=== PATIENT | female | born 1945 | race Caucasian/White ===

== ENCOUNTER 2024-02-14 19:29 | Emergency (ER) | payer MEDICARE, SELFPAY ==
[2024-02-14] VITALS (7 sets, daily range): BP systolic 100–162; BP diastolic 46–97; PULSE 73–92; RESP 15–18; TEMP 36.6; O2SAT 92–96; BMI 27.8
--- NOTE | 2024-02-14 19:53 | ECG_ITS ---
[facility] Date: 2024-02-14 Pat Name: Irais Rebolledo Department: Room: Gender: Female [employer] Dispatcher: : [id number] Requested By: Myrna Gilmore Order Number: [id number] Ramona MD: Bishnu Luna M.D. Measurements Intervals [place] Rate: 84 P: -11 TN: 163 QRS: 94 QRSD: 94 T: 52 QT: 367 QTc: 434 Interpretive Statements SINUS RHYTHM BORDERLINE RIGHT AXIS DEVIATION [QRS AXIS > 90] LOW QRS VOLTAGE IN PRECORDIAL LEADS [QRS DEFLECTION < 1.0 mV IN CHEST LEADS] SEPTAL MYOCARDIAL INFARCTION , OF INDETERMINATE AGE [40+ ms Q WAVE IN V1/V2] No previous ECG available for comparison Electronically Signed On 02-15-2024 21:33:40 AGING DEPARTMENT SUPERVISOR by Bishnu Luna M.D. [email or web address]
--- NOTE | 2024-02-14 20:34 | USR_ITS ---
PROCEDURE INFORMATION: Exam: US Duplex Left Lower Extremity Veins, Limited Exam date and time: 02/14/2024 9:08 PM Age: 79 years old Clinical indication: Pain; Leg, lower; Left; Additional info: L leg pain TECHNIQUE: Imaging protocol: Real-time duplex ultrasound of the left extremity with 2-D ring scale, color Doppler flow and spectral waveform analysis including responses to compression and other maneuvers (when performed) with image documentation. Limited exam focused on the left lower extremity veins. COMPARISON: No relevant prior studies available. FINDINGS: Left deep veins: Unremarkable. The common femoral, femoral, proximal profunda femoral and popliteal veins are patent without thrombus. Normal Doppler waveforms. Normal compressibility and/or augmentation response. Superficial veins: Greater saphenous vein at the saphenofemoral junction is patent without thrombus. Soft tissues: Unremarkable. US/CV venous duplex [facility] [id number] IMPRESSION: No evidence of deep vein thrombosis.
--- NOTE | 2024-02-14 20:34 | CTR_ITS ---
PROCEDURE INFORMATION: Exam: CT Head Without Contrast Exam date and time: 02/14/2024 9:21 PM Age: 79 years old Clinical indication: Syncope and collapse TECHNIQUE: Imaging protocol: Computed tomography of the head without contrast. Radiation optimization: All CT scans at this facility use at least one of these dose optimization techniques: automated exposure control; mA and/or kV adjustment per patient size (includes targeted exams where dose is matched to clinical indication); or iterative reconstruction. COMPARISON: No relevant prior studies available. RADIATION DOSE METRICS: Total DLP (mGy-cm): 1012.64 FINDINGS: Brain: Normal. No hemorrhage. Unremarkable white matter. No mass effect. Cerebral ventricles: No ventriculomegaly. Paranasal sinuses: Visualized sinuses are unremarkable. No fluid levels. Mastoid air cells: Visualized mastoid air cells are well aerated. Bones: Left mandibular condyle osteoarthritic changes. Soft tissues: Unremarkable. CT/CT head wo con* [id number] IMPRESSION: No acute intracranial process. Consider brain MRI if there is continued clinical concern for an underlying acute ischemic change.
--- NOTE | 2024-02-14 20:34 | CTR_ITS ---
PROCEDURE INFORMATION: Exam: CT Abdomen And Pelvis With Contrast Exam date and time: 02/14/2024 9:24 PM Age: 79 years old Clinical indication: Vomiting TECHNIQUE: Imaging protocol: Computed tomography of the abdomen and pelvis with contrast. Radiation optimization: All CT scans at this facility use at least one of these dose optimization techniques: automated exposure control; mA and/or kV adjustment per patient size (includes targeted exams where dose is matched to clinical indication); or iterative reconstruction. Contrast material: OMNI 350; Contrast volume: 100 ml; Contrast route: INTRAVENOUS (IV); COMPARISON: [place] [id number] 02/14/2024 9:08 PM RADIATION DOSE METRICS: Total DLP (mGy-cm): 922.73 FINDINGS: Lungs: Emphysematous changes. Bibasilar atelectasis. Diaphragm: Small hiatal hernia. Liver: Hepatic steatosis. Gallbladder and biliary ducts: Normal. No calcified stones. No ductal dilation. Pancreas: Normal. No ductal dilation. Spleen: Normal. No splenomegaly. Adrenal glands: Normal. No mass. Kidneys and ureters: Bilateral renal cysts, negative for follow up advised. Right kidney nonobstructing calyceal stones. Stomach and bowel: Prominent fluid in the stomach, small bowel and colon, please correlate for a gastroenteritis colitis. Diverticulosis without diverticulitis. Appendix: No evidence of appendicitis. Intraperitoneal space: Unremarkable. No free air. No significant fluid collection. 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 Scattered aortic atherosclerotic calcifications. Lymph nodes: Unremarkable. No enlarged lymph nodes. Urinary bladder: Unremarkable as visualized. Reproductive: Unremarkable as visualized. Bones/joints: Unremarkable. No acute fracture. Soft tissues: Unremarkable. CT/CT abdomen pelvis w con* [id number] IMPRESSION: 1. Prominent fluid in the stomach, small bowel and colon, please correlate for a gastroenteritis colitis. 2. 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 3. Bilateral renal cysts, negative for follow up advised. 4. Right kidney nonobstructing calyceal stones. 5. Scattered aortic atherosclerotic calcifications. 6. Emphysematous changes. 7. Bibasilar atelectasis. 8. Hepatic steatosis. 9. Small hiatal hernia. 10. Diverticulosis without diverticulitis.
[2024-02-14] MEDS: ondansetron 2 mg/ML SDV 2 mL 4 MG IVP (20:39)
--- NOTE | 2024-02-14 20:40 | ED_ITS ---
HPI - Abdominal Pain 2 General: Chief Complaint: Abdominal Pain Stated Complaint: Vomitting blood, jaw hurts Time Seen by Provider: 02/14/24 20:29 Source: patient Mode of arrival: ambulatory Limitations: no limitations History of Present Illness: 79-year-old female states that she had e aten at Tuesdays this evening states started felt nauseous having abdominal cramping and an hour ago started having nausea and vomiting states that one of her vomitus had blood in it. 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 She had abdominal cramping denies any severe abdominal pain. States she also complains of some left leg pains and is concerned also for DVT as she has had long trips from [place] recently. Denies any fever Associated Symptoms: Reports nausea and vomiting; Denies chills, diarrhea, dysuria and fever(s) Related Data Previous Rx's Medication Instructions Recorded ondansetron 4 mg disintegrating 4 mg PO Q6H PRN nausea and 02/14/24 tablet vomiting #14 tabs Allergies Allergy/AdvReac Type Severity Reaction Status Date / Time enalaprilat [From Vasotec] Allergy Unknown Verified 02/14/24 19:51 Iodinated Contrast Media Allergy Unknown Verified 02/14/24 19:51 Penicillins Allergy Unknown Verified 02/14/24 19:51 Review of Systems 2 Const: Denies: fever(s), chills, body aches or change in appetite ENMT: Denies: throat pain or dental pain Card: Denies: chest pain Resp: Denies: dyspnea GI: Reports: abdominal pain, nausea and vomiting; Denies: diarrhea : Denies: dysuria Musc: Denies: neck pain or back pain Skin/Breast: Denies: rash Neuro: Denies: headache(s) Physical Exam 2 Const: COMMON NORMALS: no acute distress, patient oriented x3 and healthy appearing HENMT: COMMON NORMALS: normocephalic and atraumatic HEAD & SCALP: n ormocephalic and atraumatic Eye: COMMON NORMALS: conjunctivae normal CONJUNCTIVA: Yes conjunctivae normal Neck/C-Spine: COMMON NORMALS: full ROM and supple Chest: COMMONS NORMALS: normal inspection of the chest Resp: COMMON NORMALS: normal respiratory effort, No retractions, No use of accessory muscles and clear to auscultation bilaterally AUSCULTATION: clear to auscultation bilaterally Cardio: COMMON NORMALS: regular rate, regular rhythm and No murmurs present (Cardio) RATE: regular rate RHYTHM: regular rhythm GI: COMMON NORMALS: Normal to inspection, nondistended, normoactive bowel sounds present, Soft to palpation, non-tender and no masses PALPATION: Yes Soft to palpation Extremity: COMMON NORMALS: normal to inspection and full ROM Neuro: COMMON NORMALS: patient oriented x3, moves all extremities and no focal motor deficits Psych: COMMON NORMALS: mental status grossly normal, Normal thought process present and cooperative THOUGHT PROCESS: Normal thought process present Skin: COMMON NORMALS: no rashes or lesions noted and no wounds GENERAL SKIN EXAM: no rashes or lesions noted Course 2 Vital Signs: Vital signs: Vital Signs Temperature 97.8 F 02/14/24 19:42 Pulse Rate 92 02/14/24 22:30 Respiratory Rate 15 02/14/24 22:30 Blood Pressure 157/67 02/14/24 22:30 Pulse Oximetry 93 02/14/24 22:30 Oxygen Delivery Me thod Room Air 02/14/24 22:30 MDM - Abdominal Pain Medical Decision Making Patient presents after vomiting is likely gastritis or food poisoning she feels much improved after Zofran she is able to tolerate p.o. CT scan showed no acute findings she also did have what sounds like a vagal episode in the waiting room while vomiting head CT is normal her tropes here are normal as well. She is able to tolerate food and liquids after Zofran will prescribe her Zofran for home I did offer admission she states she feels much improved would like to go home I feel she is stable for discharge she is to return if worsening she understands agrees to plan Lab Data I reviewed the patient's lab results. 02/14/24 20:29 02/14/24 20:29 Labs/Radiology: Radiology Impressions Abdomen/Pelvis CT 02/14/24 20:34 IMPRESSION: 1. Prominent fluid in the stomach, small bowel and colon, please correlate for a gastroenteritis colitis. 2. 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 3. Bilateral renal cysts, negative for follow up advised. 4. Right kidney nonobstructing calyceal stones. 5. Scattered aortic atherosclerotic calcifications. 6. Emphysematous changes. 7. Bibasilar atelectasis. 8. Hepatic steatosis. 9. Small hiatal hernia. 10. Diverticulosis without diverticulitis. Head CT 02/14/24:34 IMPRESSION: No acute intracranial process. Consider brain MRI if there is continued clinical concern for an underlying acute ischemic change. Venous Duplex 02/14/24:34 IMPRESSION: No evidence of deep vein thrombosis. Laboratory Results WBC 17.29 10^3/uL (3.29-11.43) H 02/14/24 20: RBC 5.43 10^6/uL (3.85-5.65) 02/14/24 20: Hgb 16.60 g/dL (11.27-16.99) 02/14/24: Hct 50.3 % (36-47) H 02/14/24: MCV 92.6 fl (85-98) 02/14/24: MCH 30.6 pg (27-33) 02/14/24: MCHC 33.0 g/dL (30-55) 02/14/24 20: RDW 13.2 % (12.1-15.1) 02/14/24: Plt Count 284 10^3/cmm (157-399) 02/14/24: MPV 9.6 fL (7.4-10.4) 02/14/24: Neut % (Auto) 86.2 % 02/14/24: Lymph % (Auto) 7.0 % 02/14/24: [place] % (Auto) 5.4 % 02/14/24 20: Eos % (Auto) 0.9 % 02/14/24: Baso % (Auto) 0.2 % 02/14/24: Neut # (Auto) 14.91 10^3/uL (1.8-7.7) H 02/14/24: Lymph # (Auto) 1.2 10^3/uL (0.8-4.8) 02/14/24 20: [place] # (Auto) 0.9 10^3/uL (0.2-0.9) 02/14/24 20: Eos # (Auto) 0.2 10^3/uL (0.0-0.8) 02/14/24 20:29 Baso # (Auto) 0.0 10^3/uL (0.0-0.1) 02/14/24 20: Nucleated RBC % (auto) 0 % 02/14/24 20: Nucleated RBCs # 0.0 /100WBC 02/14/24 20: PT 13.10 SECONDS (12.1-14.9) 02/14/24 20: INR 0.96 (0.8-1.2) 02/14/24 20:29 Sodium 137 mmol/L (136-145) 02/14/24 20: Potassium 4.3 mmol/L (3.5-5.1) 02/14/24 20: Chloride 98 mmol/L (98-107) 02/14/24 20: Carbon Dioxide 27 mmol/L (22-29) 02/14/24 20: Anion Gap 16.3 (5-19) 02/14/24 20:29 BUN 21 mg/dL (8-23) 02/14/24 20:29 Creatinine 1.0 mg/dL (0.5-0.9) H 02/14/24 20:29 GFR Calculation Not Reportable 02/14/24: Glucose 221 mg/dL (65-115) H 02/14/24 20:29 Calculated Osmolality 294 mOsm/kg (285-295) 02/14/24: Calcium 10.2 mg/dL (8.5-10.5) 02/14/24 20: Total Bilirubin 0.6 mg/dL (0.15-1.2) 02/14/24 20:29 AST 23 U/L (0-32) 02/14/24 20:29 ALT 27 U/L (0-33) 02/14/24 20:29 Alkaline Phosphatase 83 U/L (35-105) 02/14/24 20:29 Troponin T Baseline 8 ng/L (0-10) 02/14/24 20: Troponin T 120 Minute 7.22 ng/L (0-10) 02/14/24 22:16 Total Protein 7.3 g/dL (6.6-8.7) 02/14/24 20:29 Albumin 4.7 g/dL (3.5-5.2) 02/14/24 20:29 Globulin 2.6 g/dL (1.3-4.6) 02/14/24 20:29 Lipase 54 U/L (13-60) 02/14/24 20:29 All radiology interpretation(s) finalized by discharge Discharge Plan Discharge Patient Disposition: Home Clinical Impression: Vomiting Condition: Stable Prescriptions: New ondansetron 4 mg tablet,disintegrating 4 mg PO Q6H PRN (Reason: nausea and vomiting) Qty: 14 0RF Discharge Orders: Discharge ED (Routine); Ordered 02/14/24 Ordered By: Myrna Gilmore Discharge Diet: Advance as tolerated Discharge Activity: Resume usual activity Patient Instructions: Acute Nausea and Vomiting (ED) Coding Level of Care Code ED Acid Operator for Sanaz Alonzo
[2024-02-14 20:41] LABS: Basophils % 0.2 %; Eosinophils # 0.2 10^3/uL (0.0-0.8); Eosinophils % 0.9 %; Hematocrit 50.3 % (36-47); Lymphocytes # 1.2 10^3/uL (0.8-4.8); Mean Corpuscular Hemoglobin 30.6 pg (27-33); Mean Corpuscular Volume 92.6 fl (85-98); Mean Platelet Volume 9.6 fL (7.4-10.4); Monocytes # 0.9 10^3/uL (0.2-0.9); Monocytes % 5.4 %; Neutrophils # 14.91 10^3/uL (1.8-7.7); Neutrophils % 86.2 %; Nucleated Red Blood Cells % 0 %; Platelet Count 284 10^3/cmm (157-399); Red Blood Count 5.43 10^6/uL (3.85-5.65); Red Cell Distribution Width 13.2 % (12.1-15.1); White Blood Count 17.29 10^3/uL (3.29-11.43)
[2024-02-14 20:53] LABS: INR 0.96 (0.8-1.2)
[2024-02-14 20:58] LABS: Alanine Aminotransferase 27 U/L (0-33); Albumin Level 4.7 g/dL (3.5-5.2); Alkaline Phosphatase 83 U/L (35-105); Anion Gap 16.3 (5-19); Aspartate Amino Transferase 23 U/L (0-32); Blood Urea Nitrogen 21 mg/dL (8-23); Calcium 10.2 mg/dL (8.5-10.5); Carbon Dioxide 27 mmol/L (22-29); Chloride 98 mmol/L (98-107); Creatinine Clr Calc Pharmacy 40.8272; Globulin 2.6 g/dL (1.3-4.6); Glucose 221 mg/dL (65-115); Lipase 54 U/L (13-60); Osmolality Calculated 294 mOsm/kg (285-295); Potassium 4.3 mmol/L (3.5-5.1); Sodium 137 mmol/L (136-145); Total Bilirubin 0.6 mg/dL (0.15-1.2); Total Protein 7.3 g/dL (6.6-8.7)
[2024-02-14 20:59] LABS: Troponin(5th) Baseline 8 ng/L (0-10)
[2024-02-14] MEDS: diphenhydrAMINE 50 mg/mL SDV 1mL 25 MG IVP (21:04)
[2024-02-14] MEDS: methylPREDNISolone sod succ 40 mg/mL INJ IVP (21:07)
[2024-02-14] MEDS: iohexol 350 mg/mL 500 mL Btl (per mL) IV (21:23)
--- NOTE | 2024-02-14 22:30 | PC.NURSE ---
pt resting in bed, eyes closed. Pt woke up and PO challenge started, given sprite, crackers, jello, and sandwich, told to start slow, pt voiced understanding.
--- NOTE | 2024-02-14 22:44 | PC.NURSE ---
pt ate jello and drank sprite and has kept it down at this time.
[2024-02-14 22:45] LABS: Troponin 5 2HR 7.22 ng/L (0-10)
[2024-02-14 22:50] LABS: Troponin 5 2HR Delta -0.78 ABS# (0-10)
== END 2024-02-14 23:08 | disposition home or self-care (01) ==
PROVIDERS: Emergency Provider Emergency Medicine
DX: R11.10 Vomiting, unspecified (principal)
CPT/HCPCS: 36415; 70450; 74177; 80053; 83690; 84484; 85025; 85610; 93005; 93971; 96374; 96375; 99285; J1200; J2405; J2919